=== PATIENT | female | born 1950 | race Hispanic/Latino ===

== ENCOUNTER 2016-10-24 08:28 | Day surgery (SDC) | payer MEDICAID ==
[2016-10-17 13:10] VITALS: BMI 26.9
[2016-10-24] MEDS ORDERED: Propofol 10 mg/ml Inj (20 ML) ONE (09:09)
[2016-10-24] MEDS ORDERED: Lactated Ringer's 1,000 ML IV SCH (09:15)
[2016-10-24 10:07] VITALS: RESP 18
[2016-10-24 11:30] VITALS: BP 126/86; PULSE 83; TEMP 98.7; O2SAT 99
== END 2016-10-24 11:23 | disposition home or self-care (01) ==
LOC: ENDO 08:28
PROVIDERS: ATTEND Internal Medicine
DX: Z12.11 Encounter for screening for malignant neoplasm of colon (principal); K63.5 Polyp of colon; K64.8 Other hemorrhoids; K63.89 Other specified diseases of intestine
CPT/HCPCS: 45390; 88305; J2001; J2704; J7040; J7120